=== PATIENT | male | born 1960 | race Two or more races ===

== ENCOUNTER 2017-12-19 10:50 | Emergency (ER) | payer OTHER ==
[~2017-12-19] VITALS: Ht 172.7 cm; Wt 85.3 kg
[~2017-12-19 10:50] MED LIST: MAXITROL EYE O3.5 GM OP
[2017-12-19] MEDS ORDERED: LIPITOR20 MG (11:36)
== END 2017-12-20 13:00 | disposition designated cancer center or children's hospital (05) ==
LOC: ER 10:50 → CPU-OBS 11:03
DX: I21.3 ST elevation (STEMI) myocardial infarction of unspecified site (principal); R07.89 Other chest pain
CPT/HCPCS: G0378; G0379; 93005

== ENCOUNTER 2022-08-18 07:06 | Outpatient (CLI) | payer OTHER ==
[~2022-08-18 07:06] MED LIST changes: +LIPITOR20 MG
== END 2022-08-18 07:13 | disposition home or self-care (01) ==
LOC: NUCLEAR 07:06
PROVIDERS: ATTEND Internal Medicine Cardiovascular Disease
DX: I20.1 Angina pectoris with documented spasm (principal)
CPT/HCPCS: 78452; 93017; A9500